=== PATIENT | female | born 2000 | race Caucasian/White ===

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

== ENCOUNTER 2022-03-21 19:29 | Inpatient (IN) | payer OTHER ==
[~2022-03-21] VITALS: Ht 149.9 cm; Wt 44.0 kg
[2022-03-21 19:50] VITALS: BP 109/44
--- NOTE | 2022-03-21 19:53 | NUR ---
TO LOBBY A/W BED AMBULATORY
--- NOTE | 2022-03-21 20:32 | NUR ---
URINE COLLECTED AND SENT TO LAB
--- NOTE | 2022-03-21 23:33 | NUR ---
PT TO 4
--- NOTE | 2022-03-21 23:53 | NUR ---
multimedia technician with patient
--- NOTE | 2022-03-21 23:55 | NUR ---
Patient resting in bed, A/Ox4, chest rise and fall symmetrical, no c/o pain or s/s of distress, patient on monitor
[2022-03-22 00:05] LABS: BILIRUBIN,URINE NEGATIVE (NEGATIVE); BLOOD, URINE 2+ (NEGATIVE); COLOR,URINE YELLOW (YELLOW); LEUKOCYTE ESTERASE ,URINE 3+ (NEGATIVE); NITRITE, URINE NEGATIVE (NEGATIVE); UGLUCOSE NEGATIVE (NEGATIVE)
[2022-03-22 00:09] LABS: APPEARANCE,URINE SLIGHTLY CLOUDY (CLEAR)
[2022-03-22 00:15] LABS: BASOPHILS # (AUTO) 0.1 K/uL (0.00-0.22); BASOPHILS % (AUTO) 0.4 % (0.0-2.0); EOSINOPHILS % (AUTO) 0.1 % (0.0-4.0); HEMATOCRIT 34.3 % (36-48); HEMOGLOBIN 11.3 g/dL (12.0-16.0); LYMPHOCYTES # (AUTO) 1.2 K/uL (2.5-16.5); LYMPHOCYTES % (AUTO) 10.3 % (20.5-51.1); MEAN CORPUSCULAR HEMOGLOBIN 29 pg (27-31); MEAN CORPUSCULAR HGB CONC 33 g/dL (33-37); MEAN CORPUSCULAR VOLUME 88.5 fL (80-94); MONOCYTES # (AUTO) 1.4 K/uL (0.8-1.0); MONOCYTES % (AUTO) 12.3 % (1.7-9.3); NEUTROPHILS % (AUTO) 76.9 % (42.2-75.2); PLATELET COUNT (AUTO) 278 K/uL (140-450); RED BLOOD CELL COUNT(AUTO) 3.87 MIL/uL (4.20-5.40); RED CELL DISTRIBUTION WIDTH 13.8 % (11.6-13.7); WHITE BLOOD COUNT (AUTO) 11.7 K/uL (4.8-10.8)
[2022-03-22 00:16] LABS: RBC,URINE 0-5 /HPF (0-5)
[2022-03-22 00:17] LABS: WBC,URINE TOO MANY TO COUNT /HPF (0-5)
[2022-03-22 00:35] LABS: ALBUMIN 3.6 g/dL (3.4-5.0); ANION GAP 14.7 (8-16); CARBON DIOXIDE 23.6 mmol/L (21-32); CREATININE 0.8 mg/dL (0.6-1.3); POTASSIUM 3.3 mmol/L (3.5-5.1); TOTAL BILIRUBIN 0.5 mg/dL (0.0-1.0)
--- NOTE | 2022-03-22 02:00 | NUR ---
Patient resting in bed, A/Ox4, chest rise and fall symmetrical, no c/o pain or s/s of distress, patient on monitor
[2022-03-22] MEDS ORDERED: cefTRIAXone 500 MG in LIDOCAINE MPF 1% 1 ML IM ONE (02:20)
[2022-03-22] MEDS ORDERED: KETOROLAC 15 MG/ML VIAL IVP ONE (02:25)
[2022-03-22] MEDS ORDERED: cefTRIAXone 1,000 MG VIAL ONE (03:38)
[2022-03-22] MEDS ORDERED: KETOROLAC 15 MG/ML VIAL ONE (03:39)
[2022-03-22] MEDS ORDERED: DOXYCYCLINE 100 MG CAP ONE (03:39)
--- NOTE | 2022-03-22 04:00 | NUR ---
Patient resting in bed, A/Ox4, chest rise and fall symmetrical, no c/o pain or s/s of distress, patient on monitor
[2022-03-22] MEDS ORDERED: NACL 0.9% 2,000 ML IV ONE (05:05)
[2022-03-22] MEDS ORDERED: NACL 0.9% 1,000 ML IV ONE (05:15)
[2022-03-22] MEDS ORDERED: POTASSIUM CHLORIDE 10 MEQ TABER PO PRN (05:15)
[2022-03-22] MEDS ORDERED: MAG SULF 2000 MG/WATER PREMIX 50 ML IV PRN (05:15)
[2022-03-22] MEDS ORDERED: HYDROcodone/APAP 5/325 MG 1 TAB TAB PO PRN (05:15)
[2022-03-22] MEDS ORDERED: MORPHINE SULFATE 4 MG/ML SYR IVP PRN (05:15)
[2022-03-22] MEDS ORDERED: LORazepam 1 MG TAB PO PRN (05:15)
[2022-03-22] MEDS ORDERED: KCL 20 MEQ/WATER INJ PREMIX 200 ML IV PRN (05:15)
[2022-03-22] MEDS ORDERED: ONDANSETRON 4 MG/2 ML VIAL IVP PRN (05:15)
[2022-03-22] MEDS ORDERED: ZOLPIDEM 5 MG TAB PO PRN (05:15)
[2022-03-22] MEDS ORDERED: ACETAMINOPHEN 325 MG TAB PO PRN (05:15)
[2022-03-22] MEDS ORDERED: DOXYCYCLINE 100 MG in DEXTROSE 5% 100 ML IV SCH ×2 (05:20→08:25)
[2022-03-22] MEDS: NACL 0.9% 1,000 ML IV SCH ×2 (06:18→17:18)
[2022-03-22] MEDS: MIDODRINE 5 MG TAB PO SCH ×4 (06:23→23:39)
[2022-03-22] MEDS ORDERED: DOXYCYCLINE 100 MG VIAL IV ONE (06:42)
--- NOTE | 2022-03-22 06:55 | NUR ---
Patient resting in bed, A/Ox4, chest rise and fall symmetrical, no c/o pain or s/s of distress, patient on monitor
--- NOTE | 2022-03-22 07:25 | NUR ---
Change of shift report given to AM shift Nurse Scot DOUGLAS. AM shift Nurse Scot RN verbalized understanding of report, no further questions.
--- NOTE | 2022-03-22 07:45 | NUR ---
sleeping, no ac distress, sr on cm, o2 sat 99% ra, ns running well Rac, sr up times 2, pain 2/10, will be admitted
--- NOTE | 2022-03-22 08:29 | NUR ---
transferred to 104 b, reports to Nmshanda, no distress noted in pt
[2022-03-22] MEDS: DOCUSATE SODIUM 100 MG GELCAP PO SCH (08:59)
[2022-03-22] MEDS: ENOXAPARIN 40 MG/0.4 ML SYR SUBQ SCH (09:00)
[2022-03-22] MEDS ORDERED: cefTRIAXone 2,000 MG in DEXTROSE 5% 100 ML IV SCH (09:00)
[2022-03-22] MEDS ORDERED: DOXYCYCLINE 100 MG CAP PO SCH ×2 (09:00→21:00)
--- NOTE | 2022-03-22 09:12 | NUR ---
PATIENT HAS BEEN SCREENED AND CATEGORIZED LOW NUTRITION RISK. PATIENT WILL BE SEEN WITHIN 7 DAYS OF ADMISSION. 03/22/22-03/29/[address]
[2022-03-22 12:00] VITALS: BP 97/57
[2022-03-22 16:00] VITALS: BP 99/62
[2022-03-22] MEDS: DOXYCYCLINE 100 MG in DEXTROSE 5% 100 ML IV SCH (16:58)
[2022-03-22] MEDS: IBUPROFEN 400 MG TAB PO SCH (17:34)
--- NOTE | 2022-03-22 19:15 | NUR ---
RECEIVED PT FROM MORNING SHIFT NURSE. PT IS SITTING ON THE BED, WATCHING TV. PT IS AOX4, AMBULATORY, ABLE TO VERBALIZE NEEDS AND ABLE TO FOLLOW COMMANDS. PT IS ON ROOM AIR AND ON REGULAR DIET. PT HAS IV ON RIGHT AC GAUGE 20 RUNNING WITH NS AT 80 ML/HR. PT SKIN IS INTACT. NO COMPLAIN OF PAIN AT THIS TIME. NO S/S OF RESPIRATORY DISTRESS NOTED. ALL SAFETY MEASURES IMPLEMENTED. BED IN LOW POSITION, BED WHEELS ON LOCK AND CALL LIGHT WITHIN REACH.
[2022-03-22 20:00] VITALS: BP 95/53
--- NOTE | 2022-03-22 23:39 | NUR ---
SCHEDULED AND PRESCRIBED MEDICATION WAS GIVEN TO PT PER MD ORDER. ALL SAFETY MEASURES IMPLEMENTED. BED IN LOW POSITION, BED WHEELS ON LOCK AND CALL LIGHT WITHIN REACH.
--- NOTE | 2022-03-23 02:17 | NUR ---
SCHEDULE AND PRESCRIBED MEDICATION WAS GIVEN TO PT PER MD ORDER. ALL SAFETY MEASURES IMPLEMENTED. BED IN LOW POSITION, BED WHEELS ON LOCK AND CALL LIGHT WITHIN REACH.
[2022-03-23] MEDS ORDERED: cefTRIAXone 2,000 MG in DEXTROSE 5% 100 ML IV SCH (03:00)
[2022-03-23] MEDS: DOXYCYCLINE 100 MG in DEXTROSE 5% 100 ML IV SCH (05:05)
[2022-03-23] MEDS: MIDODRINE 5 MG TAB PO SCH ×2 (05:05→12:29)
[2022-03-23 06:13] LABS: BASOPHILS % (AUTO) 0.3 % (0.0-2.0); HEMATOCRIT 33.3 % (36-48); HEMOGLOBIN 11.1 g/dL (12.0-16.0); MEAN CORPUSCULAR HEMOGLOBIN 30 pg (27-31); MEAN CORPUSCULAR HGB CONC 33 g/dL (33-37); MEAN CORPUSCULAR VOLUME 89.2 fL (80-94); MONOCYTES # (AUTO) 0.7 K/uL (0.8-1.0); NEUTROPHILS # (AUTO) 5.3 K/uL (1.8-7.7); NEUTROPHILS % (AUTO) 75.7 % (42.2-75.2); PLATELET COUNT (AUTO) 268 K/uL (140-450); RED BLOOD CELL COUNT(AUTO) 3.73 MIL/uL (4.20-5.40); RED CELL DISTRIBUTION WIDTH 13.9 % (11.6-13.7)
[2022-03-23] MEDS: NACL 0.9% 1,000 ML IV SCH (06:19)
[2022-03-23 06:31] LABS: CARBON DIOXIDE 22.9 mmol/L (21-32); CREATININE 0.7 mg/dL (0.6-1.3); POTASSIUM 3.9 mmol/L (3.5-5.1)
--- NOTE | 2022-03-23 07:05 | NUR ---
PT IS STABLE. NO ACUTE EVENTS THROUGHOUT THE NIGHT.NO S/SX OF DISTRESS AT THIS MOMENT.ALL NEEDS ATTENDED. ALL PRECAUTIONS IN PLACE. CALL LIGHT WITHIN REACH. ENDORSED TO DAY RN.
--- NOTE | 2022-03-23 07:19 | NUR ---
GOT REPORT FROM THE NIGHT NURSE, PT IS SLEEPING NO SOB.[id number]
[2022-03-23 08:00] VITALS: BP 78/41
[2022-03-23] MEDS ORDERED: PRO5 PO (08:03)
[2022-03-23] MEDS ORDERED: IBUP-2216 PO (08:03)
[2022-03-23] MEDS ORDERED: VIB100 PO (08:03)
[2022-03-23] MEDS ORDERED: CIPR500T4 PO (08:03)
[2022-03-23] MEDS: ENOXAPARIN 40 MG/0.4 ML SYR SUBQ SCH (08:23)
[2022-03-23] MEDS: DOCUSATE SODIUM 100 MG GELCAP PO SCH (08:23)
[2022-03-23] MEDS: IBUPROFEN 400 MG TAB PO SCH ×2 (08:23→12:29)
[2022-03-23 09:48] VITALS: BP 90/41
[2022-03-23] MEDS ORDERED: NACL 0.9% 500 ML IV SCH (12:33)
--- NOTE | 2022-03-23 12:39 | NUR ---
GIVING 500 CC NS BOLUS FOR LOW BP OF 77\43 WITH MAP54. PT IS OK NO PAIN NO DIZNESS, [id number]
--- NOTE | 2022-03-23 14:00 | NUR ---
PT DISCHARGED HOME, DISCHARGE INSTRUCTION GIVEN, IV AND ID BAND REMOVED, BP UP AFTER BOLUS TO 111\74 , PT WAKED OUT WITH THE NURSE WITHOUT ANY DISCOMFORT.[id number]
== END 2022-03-23 14:10 | disposition home or self-care (01) | DRG 720 ==
LOC: MED 19:29 → MTU 03-22 05:17
PROVIDERS: ADMIT Internal Medicine; ATTEND Internal Medicine
DX: A41.9 Sepsis, unspecified organism (principal); E87.1 Hypo-osmolality and hyponatremia; N10 Acute pyelonephritis; N39.0 Urinary tract infection, site not specified; E87.6 Hypokalemia; B96.20 Unspecified Escherichia coli [E. coli] as the cause of diseases classified elsewhere; Z20.822 Contact with and (suspected) exposure to COVID-19
CPT/HCPCS: 36415; 80048; 80053; 81001; 83690; 83735; 85025; 87040; 87081; 87086; 87491; 96361; 96375; 99285; J0696; J1650; J1885; J3490; J7060; Q9967